=== PATIENT | female | born 1990 | race African-American/Black ===

== ENCOUNTER 2024-05-15 06:40 | Emergency (ER) | payer OTHER, MEDICAID ==
[~2024-05-15] VITALS: Ht 165.1 cm; Wt 68.7 kg
[2024-05-15 07:23] VITALS: BP 114/85; PULSE 84; RESP 18; O2SAT 99
--- NOTE | 2024-05-15 07:54 | ED.PDOC ---
SOB-HPI HPI Comments 33 year old F presents for URI symptoms Presents for body aches and cough Symptoms started 4 days Taking Theraflu Denies sick contacts Denies hx of DM Not immunocompromised Chief Complaint: Flu like Time Seen by MD: 07:03 Reviewed notes: Nurses Notes, Medications, Allergies Information Source: Patient Mode of Arrival: Ambulatory Family History Family History: Reviewed,noncontributory to illness Social History Smoker: Non-Smoker Alcohol: Denies ETOH Use Drugs: Denies Drug Use All Other Systems: Reviewed and Negative (Per HPI) Physical Exam General Appearance: No Apparent Distress, Normal HEENT: Normal ENT Inspection, Pharynx Normal, TMs Normal Neck: Full Range of Motion, Non-Tender, Normal, Normal Inspection Respiratory: Chest Non-Tender, Lungs Clear, No Accessory Muscle Use, No Respiratory Distress, Normal Breath Sounds Cardiovascular: No Murmur, No Gallop, Regular Rate/Rhythm Breast Exam: Deferred Gastrointestinal: No Organomegaly, Non Tender, No Pulsatile Mass, Normal Bowel Sounds, Soft Genitalia: Deferred Pelvic: Deferred Rectal: Deferred Extremities: No calf tenderness, Normal capillary refill, Normal inspection, Normal range of motion, Non-tender, No pedal edema Musculoskeletal : Apperance: Normal Neurologic: Alert, No Motor Deficits, Normal Affect, Normal Mood, No Sensory Deficits Cerebellar Function: Normal Reflexes: Normal Skin: Dry, Normal Color, Warm Lymphatic: No Adenopathy Was a procedure done? Was a procedure done?: No Differential Dx Differential Diagnosis: Asthma, Bronchitis, URI X-Ray, Labs, Meds, VS Vital Signs Date Time Temp Pulse Resp B/P (MAP) Pulse Ox O2 Delivery O2 Flow Rate FiO2 05/15/24 08:02 99.0 05/15/24 07:23 99.0 84 18 114/85 (95) 99 99.0 05/15/24 07:23 84 18 99 Room Air 05/15/24 06:50 99.0 84 18 114/85 (95) 99 Lab Test 05/15/24 08:00 05/15/24 06:53 Range/Units Urine Color Light-yellow Yellow Urine Clarity Clear Clear Urine pH 6.0 5.0-9.0 Urine Specific [place] 1.023 1.001-1.035 Urine Protein Negative Negative Urine Ketones 2+ H Negative Urine Blood Negative Negative /uL Urine Nitrite Negative Negative Urine Bilirubin Negative Negative Urine Urobilinogen Normal Negative mg/dL Urine Leukocyte Esterase Negative Negative /uL Urine RBC 1 0 - 4 /hpf Urine Microscopic WBC 2 0-5 /HPF Urine Squamous Epithelial Cells Few <5 /hpf Urine Bacteria Few H None Seen /hpf Urine Mucus Few None Seen Urine Glucose Normal Normal mg/dL Urine Test Negative Negative Influenza Type A Antigen Negative Negative Influenza Type B Antigen Positive Negative SARS-CoV-2 Antigen (Rapid) Negative NEGATIVE Current Medications Medications (Trade) Dose Ordered Sig/Kervin Route Start Time Stop Time Status Last Admin Acetaminophen (Tylenol Tablet) 650 mg ONCE ONCE PO 05/15/24 08:00 05/15/24 08:01 DC 05/15/24 08:02 X-Ray, Labs, Meds, VS Comment On presentation, the patient is afebrile and has stable vital signs. The patient is overall well appearing, non-toxic on exam. The patient's symptoms are consistent with a viral upper respiratory infection. Low suspicion for Acute Asthma or COPD Exacerbation, CHF exacerbation, PE Viral Testing done and results show Influenza B Labs show: UA negative, Preg negative The patient did not have any focal lung findings, and therefore chest x-ray was not indicated during this visit Low suspicion for strep pharyngitis given physical exam findings and patient's presenting symptoms, therefore, rapid step was deferred Overall, the patient is well-hydrated and non-toxic. Plan for symptomatic control for fever and pain as needed. The patient was able to tolerate p.o. intake in the ED. At this time, the patient is safe to discharge home. The exam findings and plan discussed. Will discharge home with PCP follow up and strict return precautions. Time of 1ST Reevaluation: 07:54 Reevaluation 1ST: Improved Patient Education/Counseling: Diagnosis, Treatment Family Education/Counseling: Diagnosis, Treatment Departure 1 Departure Time of Disposition: 08:45 Impression: Primary Impression: Influenza B Disposition: 01 HOME / SELF CARE / HOMELESS Condition: Stable e-Prescriptions Benzonatate (Benzonatate) 100 Mg Cap 1 CAP PO TID for 10 Days, #30 CAP 0 Refills Prov: NIMA CARROLL [employer] 05/15/24 Acetaminophen (Acetaminophen) 500 Mg Tab 500 MG PO Q6HP PRN for 14 Days, #56 TAB 0 Refills Prov: NIMA CARROLL [employer] 05/15/24 Ibuprofen (Ibuprofen) 600 Mg Tab 1 TAB PO TID for 14 Days, #42 TAB 0 Refills Prov: NIMA CARROLL NP 05/15/24 Critical Care Note Critical Care Time?: No Stability Stability form required: No Heart Score Heart Score: Heart Score Response (Comments) Value History N/A 0 EKG N/A 0 Age N/A 0 Risk Factors N/A 0 Troponin N/A 0 Total 0 NIMA CARROLL NP May 15, 2024 07:54
[2024-05-15 07:55] LABS: COVID19 ANTIGEN SOFIA FIA NEGATIVE (NEGATIVE)
[2024-05-15 07:56] LABS: Rapid Influenza A Negative (Negative)
[2024-05-15 07:58] LABS: Rapid Influenza B Positive (Negative)
[2024-05-15 08:02] VITALS: TEMP 99
[2024-05-15] MEDS: ACETAMINOPHEN 325 MG TAB PO ONE (08:02)
[2024-05-15 08:20] LABS: Urine Bacteria FEW /hpf (None Seen); Urine Blood Negative /uL (Negative); Urine Clarity Clear (Clear); Urine Color Light-Yellow (Yellow); Urine Mucus FEW (None Seen); Urine Protein, UAD Negative (Negative); Urine Specific Gravity 1.023 (1.001-1.035); Urine Squamous Epithelial Cell FEW /hpf (<5); Urine Urobilinogen Normal (Negative); Urine WBC 2 /HPF (0-5)
[2024-05-15] MEDS ORDERED: BENZ100C97 PO (08:46)
[2024-05-15] MEDS ORDERED: ACET500T58 PO (08:46)
[2024-05-15] MEDS ORDERED: IBUP-1454 PO (08:46)
== END 2024-05-15 08:50 | disposition home or self-care (01) ==
LOC: ER 06:40
DX: J10.1 Influenza due to other identified influenza virus with other respiratory manifestations (principal); Z20.822 Contact with and (suspected) exposure to COVID-19
CPT/HCPCS: 36415; 81001; 81025; 87426; 87804